=== PATIENT | female | born 1985 | race Caucasian/White ===

== ENCOUNTER 2020-04-24 06:52 | Emergency (ER) | payer BC ==
[2020-04-24] MEDS ORDERED: ONDANSETRON 4 MG (ODT) TAB ONE (07:25)
[2020-04-24] MEDS ORDERED: MECLIZINE HCL 12.5 MG TAB ONE (07:25)
--- NOTE | 2020-04-24 09:07 | RAD REPORT ---
EXAM DESCRIPTION: CT - Head Brain Wo Cont - 04/24/2020 8:50 am CLINICAL HISTORY: vomiting, dizziness Headache, drowsiness COMPARISON: No comparisons TECHNIQUE: All CT scans are performed using dose optimization technique as appropriate and may inclu de automated exposure control or mA/KV adjustment according to patient size. FINDINGS: No intracranial hemorrhage, hydrocephalus or extra-axial fluid collection.No areas of brai n edema or evidence of midline shift. The paranasal sinuses and mastoids are clear. The calvarium is intact. IMPRESSION: No acute intracranial abnormality.
--- NOTE | 2020-04-24 09:12 | ER ---
Nurse's Notes [facility] Name: Audrey Freeman Age: 34 yrs Sex: Female : 1985 Arrival Date: 04/24/2020 Time: 06:54 Bed 5 Private MD: Diagnosis: Vertigo Presentation: 04/24 07:06 Chief complaint: Patient states: dizziness, N/V x 2 days, denies abd pain or fever. em Coronavirus screen: Proceed with normal triage. Patient denies a cough. Patient denies shortness of breath or difficulty breathing. Patient denies measured and/or subjective temperature greater than 100.4F prior to today's visit. Patient denies travel on a cruise ship or to a country the [facility] currently lists as an affected area. Patient denies contact with known and/or suspected case of COVID-19. Ebola Screen: Patient negative for fever greater than or equal to 101.5 degrees Fahrenheit, and additional compatible Ebola Virus Disease symptoms Patient denies exposure to infectious person. Patient denies travel to an Ebola-affected area in the 21 days before illness onset. No symptoms or risks identified at this time. Initial Sepsis Screen: Does the patient meet any 2 criteria? No. Patient's initial sepsis screen is negative. Does the patient have a suspected source of infection? No. Patient's initial sepsis screen is negative. Risk Assessment: Do you want to hurt yourself or someone else? Patient reports no desire to harm self or others. Onset of symptoms was April 22, 2020. 07:06 Method Of Arrival: Ambulatory em 07:06 Acuity: ED 3 em CLINICAL SERVICES DIRECTOR: 07:09 LMP 04/10/2020 em Historical: - Allergies: 07:09 No Known Allergies; em - PMHx: 07:09 Hypothyroidism; em - PSHx: 07:09 ankle surgery; em - Immunization history:: Adult Immunizations not immunized. - Social history:: Smoking status: Patient denies any tobacco usage or history of. Patient uses street drugs, marijuana. Screenin:11 Abuse screen: Denies threats or abuse. Nutritional screening: No deficits noted. em Tuberculosis screening: No symptoms or risk factors identified. Fall Risk None identified. Assessment: 07:06 General: Appears in no apparent distress. uncomfortable, Behavior is calm, cooperative, em appropriate for age, Denies fever. Pain: Denies pain. Neuro: Level of Consciousness is awake, alert, obeys commands, Oriented to person, place, time, situation, Appropriate for age Denies dizziness, headache. Cardiovascular: Capillary refill < 3 seconds Patient's skin is warm and dry. Respiratory: Airway is patent Respiratory effort is even, unlabored, Respiratory pattern is regular, symmetrical. GI: Abdomen is obese, Reports nausea, vomiting, Patient currently denies diarrhea. : Denies burning with urination. Derm: Skin is intact, is healthy with good turgor, Skin is pink, warm \T\ dry. Musculoskeletal: Capillary refill < 3 seconds, Range of motion: intact in all extremities. 08:00 Reassessment: Patient appears in no apparent distress at this time. Patient and/or em family updated on plan of care and expected duration. Pain level reassessed. Patient is alert, oriented x 3, equal unlabored respirations, skin warm/dry/pink. Patient states feeling better. Patient states symptoms have improved. 09:25 Reassessment: Patient appears in no apparent distress at this time. Patient and/or ss family updated on plan of care and expected duration. Pain level reassessed. Patient states feeling better. Patient states symptoms have improved. Vital Signs: 07:06 BP 130 / 63; Pulse 69; Resp 18; Temp 98.2(O); Pulse Ox 100% on R/A; Weight 135.62 kg; em Height 5 ft. 6 in. (167.64 cm); Pain 0/10; 07:06 Body Mass Index 48.26 (135.62 kg, 167.64 cm) em ED Course: 06:54 Patient arrived in ED. ag3 06:54 Bryan Estevez PA is PHCP. [facility] 06:54 Carl Salazar MD is Attending Physician. [facility] 07:01 Titi Marroquin, RN is Primary Nurse. em 07:08 Triage completed. em 07:09 Arm band placed on. em 07:11 Patient has correct armband on for positive identification. Bed in low position. Call em light in reach. Pulse ox on. NIBP on. 08:51 CT Head Brain wo Cont In Process Unspecified. EDMS 09:11 Evelin Schmitt MD is Referral Physician. [facility] 09:25 No provider procedures requiring assistance completed. Patient did not have IV access ss during this emergency room visit. Administered Medications: 07:17 Drug: Zofran (Ondansetron) 4 mg Route: PO; em 07:34 Follow up: Response: No adverse reaction; Marked relief of symptoms; Nausea is decreasedem 07:35 Drug: Meclizine 50 mg Route: PO; em 08:26 Follow up: Response: No adverse reaction; Marked relief of symptoms em Outcome: 09:12 Discharge ordered by MD. yang 09:25 Discharged to home ambulatory. ss 09:25 Condition: good 09:25 Discharge instructions given to patient, Instructed on discharge instructions, follow up and referral plans. medication usage, Demonstrated understanding of instructions, follow-up care, medications, Prescriptions given X 2. 09:26 Patient left the ED. ss Signatures: Dispatcher [employer] Bryan Blanco PA PA jmm Munoz, Edgar, RN RN em Smirch, Shelby, RN RN Belgica Diaz ag3
--- NOTE | 2020-04-24 09:12 | EDPHYS ---
Physician Documentation [facility] Name: Audrey Freeman Age: 34 yrs Sex: Female : 1985 Arrival Date: 04/24/2020 Time: 06:54 Bed 5 Private MD: ED Physician Carl Salazar HPI: 04/24 07:10 This 34 yrs old Female presents to ER via Ambulatory with complaints of jmm Vomiting. 07:10 The patient presents to the emergency department with nausea, vomiting. Onset: The jmm symptoms/episode began/occurred acutely, 2 day(s) ago. The symptoms are aggravated by movement, The symptoms are alleviated by remaining still. Associated signs and symptoms: Pertinent negatives: abdominal pain, diarrhea. This is a 34 year old female with a history of hypothyroidism that presents to the ED with complaints of acute onset dizziness with vomiting beginning 2 days ago. Dizziness is described as the room spinning. Worsened with movement. . LDR RN: 07:09 LMP 04/10/2020 em Historical: - Allergies: 07:09 No Known Allergies; em - PMHx: 07:09 Hypothyroidism; em - PSHx: 07:09 ankle surgery; em - Immunization history:: Adult Immunizations not immunized. - Social history:: Smoking status: Patient denies any tobacco usage or history of. Patient uses street drugs, marijuana. ROS: 07:10 Constitutional: Negative for fever, chills, and weight loss, Cardiovascular: Negative jmm for chest pain, palpitations, and edema, Respiratory: Negative for shortness of breath, cough, wheezing, and pleuritic chest pain. 07:10 Abdomen/GI: Positive for vomiting. 07:10 Neuro: Positive for dizziness. 07:10 All other systems are negative. Exam: 07:10 Constitutional: This is a well developed, well nourished patient who is awake, alert, jmm and in no acute distress. Head/Face: atraumatic. 07:10 Neck: Trachea midline, Supple Chest/axilla: Normal chest wall appearance and motion. Cardiovascular: Regular rate and rhythm. No edema appreciated Respiratory: Normal respirations, no respiratory distress appreciated Abdomen/GI: Non distended, soft Back: Normal ROM Skin: General appearance color normal MS/ Extremity: Moves all extremities, no obvious deformities appreciated, no edema noted to the lower extremities Neuro: Awake and alert, normal gait Psych: Behavior is normal, Mood is normal, Patient is cooperative and pleasant 07:10 Eyes: Nystagmus: horizontal, fatiguable . Vital Signs: 07:06 BP 130 / 63; Pulse 69; Resp 18; Temp 98.2(O); Pulse Ox 100% on R/A; Weight 135.62 kg; em Height 5 ft. 6 in. (167.64 cm); Pain 0/10; 07:06 Body Mass Index 48.26 (135.62 kg, 167.64 cm) em MDM: 07:10 Patient medically screened. [facility] 09:09 Data reviewed: vital signs, nurses notes. Counseling: I had a detailed discussion with [facility] the patient and/or guardian regarding: the historical points, exam findings, and any diagnostic results supporting the discharge/admit diagnosis, radiology results, the need for outpatient follow up, to return to the emergency department if symptoms worsen or persist or if there are any questions or concerns that arise at home. ED course: Normal cerebellar exam, symptoms alleviated with meclizine. I do not suspect central cause. Patient advised to follow up with ENT for further evaluation. Patient is otherwise given strict return precautions. Patient understood and agrees with the plan of care. . 04/24 08:31 Order name: CT Head Brain wo Cont; Complete Time: 09:09 [facility] 04/24 08:16 Order name: PO challenge; Complete Time: 08:26 [facility] Administered Medications: 07:17 Drug: Zofran (Ondansetron) 4 mg Route: PO; em 07:34 Follow up: Response: No adverse reaction; Marked relief of symptoms; Nausea is decreasedem 07:35 Drug: Meclizine 50 mg Route: PO; em 08:26 Follow up: Response: No adverse reaction; Marked relief of symptoms em Disposition: 04/25 07:41 Co-signature as Attending Physician, Carl Salazar MD I agree with the assessment and kdr plan of care. Disposition: 04/24/20 09:12 Discharged to Home. Impression: Vertigo. - Condition is Stable. - Discharge Instructions: Benign Positional Vertigo. - Prescriptions for Meclizine 25 mg Oral Tablet - take 1 tablet by ORAL route every 8 hours As needed; 30 tablet. Zofran ODT 4 mg Oral tablet,disintegrating - place 1 tablet by TRANSLINGUAL route every 4-6 hours; 20 tablet. - Medication Reconciliation Form, Thank You Letter, Antibiotic Education, Prescription Opioid Use form. - Follow up: Evelin Schmitt MD; When: 2 - 3 days; Reason: Recheck today's complaints, Continuance of care, Re-evaluation by your physician. Signatures: Dispatcher [employer] Carl Reyna MD MD kdr Mickail, Joel, PA PA jmm Munoz, Edgar, RN RN em Smirch, Shelby, RN RN ss Corrections: (The following items were deleted from the chart) 04/24 09:26 09:12 04/24/2020 09:12 Discharged to Home. Impression: Vertigo. Condition is Stable. ss Forms are Medication Reconciliation Form, Thank You Letter, Antibiotic Education, Prescription Opioid Use. Follow up: Evelin Schmitt; When: 2 - 3 days; Reason: Recheck today's complaints, Continuance of care, Re-evaluation by your physician. celia
[2020-04-24 09:37] VITALS: BP 130/63; TEMP 98.2; O2SAT 100
== END 2020-04-24 09:26 | disposition home or self-care (01) ==
LOC: ER 06:52
DX: R42 Dizziness and giddiness (principal); R11.2 Nausea with vomiting, unspecified
CPT/HCPCS: 70450; 99284; J8597